=== PATIENT | female | born 1995 | race Two or more races ===

== ENCOUNTER 2020-08-08 14:44 | Emergency (ER) | payer MEDICAID ==
[~2020-08-08] VITALS: Ht 165.1 cm; Wt 63.6 kg
[2020-08-08] MEDS ORDERED: PERTUSS(ACELL),DIPH,TET VAC/PF 0.5 ML VIAL IM ONE (15:45)
[2020-08-08] MEDS ORDERED: LIDOCAINE 1% 10 ML VIAL PERC ONE (15:45)
[2020-08-08] MEDS: HYDROCODONE/ACETAMINOPHEN 5-325 MG TABLET PO ONE ×2 (16:17→16:24)
[2020-08-08 18:05] VITALS: BP 133/69
== END 2020-08-08 18:24 | disposition home or self-care (01) ==
LOC: EMS 15:02
DX: S91.311A Laceration without foreign body, right foot, initial encounter (principal); F41.9 Anxiety disorder, unspecified; F17.210 Nicotine dependence, cigarettes, uncomplicated; F19.90 Other psychoactive substance use, unspecified, uncomplicated; W25.XXXA Contact with sharp glass, initial encounter; Y93.89 Activity, other specified; Y92.89 Other specified places as the place of occurrence of the external cause; Y99.8 Other external cause status
CPT/HCPCS: 73630; 90471; 90715; 99283; J3490